=== PATIENT | female | born 1960 | race Caucasian/White ===

== ENCOUNTER 2024-10-12 11:50 | Emergency (ER) | payer MEDICAID ==
[~2024-10-12] VITALS: Ht 165.1 cm; Wt 48.2 kg
[2024-10-12 11:54] VITALS: TEMP 97.9
[2024-10-12 12:57] LABS: BASOPHILS # (AUTO) 0.1 X10'3 (0-0.2); BASOPHILS % (AUTO) 1.2 % (0-1); EOSINOPHILS # (AUTO) 0.2 X10'3 (0-0.9); EOSINOPHILS % (AUTO) 3.2 % (0-6); HEMATOCRIT 42.5 % (35.0-45.0); HEMOGLOBIN 14.3 g/dl (12.0-16.0); LYMPHOCYTES # (AUTO) 2.4 X10'3 (1.1-4.8); LYMPHOCYTES % (AUTO) 30.6 % (21-51); MEAN CORPUSCULAR HEMOGLOBIN 29.9 PG (27.0-31.0); MEAN CORPUSCULAR HGB CONC 33.7 g/dL (33.0-36.5); MEAN CORPUSCULAR VOLUME 88.7 FL (78-98); MEAN PLATELET VOLUME 10.1 FL (7.4-10.4); MONOCYTES # (AUTO) 0.6 X10'3 (0-0.9); MONOCYTES % (AUTO) 8.1 % (2-12); NEUTROPHILS # (AUTO) 4.4 X10'3 (1.8-7.7); NEUTROPHILS % (AUTO) 56.9 % (42-75); PLATELET COUNT 271 X10'3 (140-440); RED BLOOD COUNT 4.79 X10'6 (4.20-5.60); RED CELL DISTRIBUTION WIDTH 14.8 % (11.5-14.5); WHITE BLOOD COUNT 7.7 X10'3 (4.5-11.0)
[2024-10-12 13:11] LABS: ALANINE AMINOTRANSFERASE 21 U/L (12-78); ALBUMIN 3.7 G/DL (3.4-5.0); ALBUMIN/GLOBULIN RATIO 1.1 (1.1-1.5); ALKALINE PHOSPHATASE 78 IU/L (46-116); ANION GAP 9 (8-16); ASPARTATE AMINO TRANSFERASE 14 U/L (10-37); BILIRUBIN,TOTAL 0.9 MG/DL (0.1-1.0); BLOOD UREA NITROGEN 8 MG/DL (7-18); BUN/CREATININE RATIO 14.8 (10.0-20.0); CALCIUM 9.1 MG/DL (8.5-10.1); CHLORIDE 98 MMOL/L (99-107); CREATININE 0.54 MG/DL (0.40-0.90); GLUCOSE 352 MG/DL (70-104); LIPASE 31 U/L (16-77); SODIUM 135 MMOL/L (135-145); TOTAL CARBON DIOXIDE 28.3 MMOL/L (24-32); TOTAL PROTEIN 7.2 G/DL (6.4-8.2); eCRCL 80 ML/MIN; eGFR > 90 ML/MIN
[2024-10-12 13:13] LABS: POTASSIUM 2.9 MMOL/L (3.5-5.1)
[2024-10-12] MEDS: ondansetron 4mg rapidly disintigrating tab PO STA (14:52)
[2024-10-12] MEDS: potassium Cl 20 mEq SR tablet PO STA (14:53)
[2024-10-12] MEDS: magnesium oxide 400mg tablet PO ONE (14:53)
[2024-10-12] MEDS ORDERED: potassium Cl 40MEQ/1/2NS 520ml 520 ML IV PRN (15:00)
[2024-10-12] MEDS ORDERED: potassium Cl 20 mEq SR tablet PO PRN (15:00)
[2024-10-12] MEDS ORDERED: magnesium sulf-water 2g/50mL 50 ML IV PRN (15:00)
[2024-10-12] MEDS: normal saline 1000ML IV soln IVB ONE ×2 (15:14→15:42)
[2024-10-12] MEDS: HYDROmorphone inj. 0.5 MG/0.5 ML DISP.SYRIN IV ONE (15:41)
[2024-10-12] MEDS ORDERED: iohexol 300mg/ml 100ml inj. ONE (15:42)
[2024-10-12] MEDS: diphenhydrAMINE 50 mg/ml inj IV ONE (15:57)
[2024-10-12] MEDS ORDERED: CIPR-260 PO (16:56)
[2024-10-12] MEDS ORDERED: BISA-78 PO (16:56)
[2024-10-12 17:38] VITALS: BP 146/78; PULSE 96; RESP 14; O2SAT 100
[2024-10-12] MEDS ORDERED: K and/or MAG REPLACEMENT MC SCH (20:00)
== END 2024-10-12 17:40 | disposition home or self-care (01) ==
LOC: ER 11:52
DX: K52.9 Noninfective gastroenteritis and colitis, unspecified (principal); K85.90 Acute pancreatitis without necrosis or infection, unspecified; R10.12 Left upper quadrant pain; R10.11 Right upper quadrant pain; Z88.5 Allergy status to narcotic agent; Z88.6 Allergy status to analgesic agent; Z79.899 Other long term (current) drug therapy; Z87.19 Personal history of other diseases of the digestive system
CPT/HCPCS: 36415; 74177; 80053; 83690; 83735; 85025; 96361; 96374; 96375; 99285; J1171; J1200; J7030; Q9967